=== PATIENT | female | born 1985 | race Caucasian/White ===

== ENCOUNTER 2017-05-03 14:14 | Emergency (ER) | payer OTHER ==
[2017-05-03] MEDS ORDERED: NS 1,000 ML IV ONE (15:04)
[2017-05-03] MEDS ORDERED: ONDANSETRON 4 MG/2 ML VIAL IVP ONE (15:04)
[2017-05-03] MEDS ORDERED: FAMOTIDINE 20 MG/NACL 50 ML IV ONE (15:04)
--- NOTE | 2017-05-03 15:08 | EDPHY ---
H & P Time Seen by Provider: 05/03/17 14:56 HPI/ROS: HPI Vomiting, diarrhea. 31-year-old female by private vehicle. This patient reports that she woke this morning with crampy lower abdominal discomfort followed by nausea, 1 episode of nonbilious, nonbloody vomiting and watery diarrhea initially. She reports that she has had several episodes of diarrhea most recent episodes have been streaked with blood. She denies any foreign travel. She ate chicken at a restaurant last night. Denies any ill contacts. She feels better now. Last episode of diarrhea was about 2 hours ago. Last menstrual period 1 week ago. No other complaints. ROS: Constitutional: No fever, no chills. No weakness. Eyes: No discharge. No changes in vision. ENT: No sore throat. No nasal congestion or rhinorrhea. Respiratory: No cough. No shortness of breath. Cardiac: No chest pain, no palpitations. Gastrointestinal: As above. Genitourinary: No hematuria. No dysuria or increased frequency with urination. Musculoskeletal: No back pain. No neck pain. No myalgias or arthralgias. Skin: No rashes. Neurological: No headache. No focal weakness or altered sensation. Past medical history: She denies any significant past medical history. Social history: Nonsmoker. No alcohol. Here by herself. Physical Exam: General Appearance: Alert, no distress. She appears comfortable. This patient is responding to questions appropriately and in full sentences. This patient appears well-hydrated and well-nourished. Eyes: Pupils equal and round no pallor or injection. No lid edema, erythema or injection. Respiratory: There are no retractions, lungs are clear to auscultation with good air movement bilaterally. Cardiovascular: Regular rate and rhythm. No murmur. Gastrointestinal: Abdomen is soft and nontender, no masses, bowel sounds normal. No focal tenderness at McBurney's point. No Caceres sign. Neurological: Motor sensory function is grossly intact. Cranial nerves are normal. Gait is normal. Skin: Warm and dry, no rashes. Musculoskeletal: Neck is supple and nontender. Extremities are symmetrical. All joints range without pain or impingement. Psychiatric: No agitation. No depression. Database: EKG: Imaging: Procedures: Emergency department course: IV placed. She was placed on a monitor. Her vital signs were reviewed. She was started on IV normal saline with 1 L to be given over the next hour. She was initially given 20 mg of IV Pepcid and 4 mg of IV Zofran. 4:30 p.m., patient re-evaluated. Resting comfortably at this time. States that she feels better. She is able to take oral fluids at this time. Results of her lab work discussed with her. Repeat abdominal exam she is soft, nontender nondistended. She feels comfortable going home at this time. I discussed the differential diagnosis with her. Management of food-borne illness discussed with her. I will prescribe her Zofran on discharge. Follow- up and return to emergency department precautions reviewed. All of her questions were answered. She was discharged in good condition. Differential Diagnosis: The differential diagnosis on this patient includes but is not limited to food borne illness, entero hemorrhagic E coli, E coli [id number]. Bowel obstruction, appendicitis, pancreatitis, cholecystitis, other surgical etiology unlikely.. This represents a partial list of diagnoses considered. These considerations are based on history, physical exam, past history, reassessment and diagnostic testing. Smoking Status: Never smoked Constitutional: Initial Vital Signs Temperature (C) 36.9 C 05/03/17 14:17 Heart Rate 88 05/03/17 14:17 Respiratory Rate 16 05/03/17 14:17 Blood Pressure 110/65 05/03/17 14:17 O2 Sat (%) 98 05/03/17 14:17 O2 Delivery Mode Room Air Allergies/Adverse Reactions: No Known Allergies Allergy (Unverified 05/03/17 14:23) Home Medications: Medication Instructions Recorded Ondansetron Odt [Zofran Odt 4 mg 4 mg PO Q4PRN PRN #10 tab 05/03/17 (*)] Medical Decision Making - Data Points Laboratory Results: 05/03/17 14:55 POC Hgb 16.7 gm/dL H gm/dL (12.6-16.3) POC Hct 49 % H % (38-47) POC Sodium 142 mEq/L mEq/L (134-144) POC Potassium 3.9 mEq/L mEq/L (3.3-5.0) POC Chloride 104 mEq/L mEq/L (97-110) POC BUN 13 mg/dL mg/dL (7-23) POC Creatinine 0.9 mg/dL mg/dL (0.6-1.0) POC Glucose 99 mg/dL mg/dL (70-100) Medications Given: Discontinued Medications Sodium Chloride (Ns) 1,000 mls @ 0 mls/hr IV EDNOW ONE; Wide Open PRN Reason: Protocol Stop: 05/03/17 15:05 Last Admin: 05/03/17 15:31 Dose: 1,000 mls Famotidine/Sodium Chloride (Pepcid 20 Mg (Premix)) 50 mls @ 200 mls/hr IV EDNOW ONE Stop: 05/03/17 15:18 Last Admin: 05/03/17 15:30 Dose: 50 mls Ondansetron HCl (Zofran) 4 mg IVP EDNOW ONE Stop: 05/03/17 15:05 Last Admin: 05/03/17 15:30 Dose: 4 mg Point of Care Test Results: 05/03/17 14:55 POC Sodium 142 POC Potassium 3.9 POC Chloride 104 POC BUN 13 POC Creatinine 0.9 POC Glucose 99 Departure - Departure Disposition: Home, Routine, Self-Care Clinical Impression: Vomiting and diarrhea, Bloody stool Condition: Good Instructions: Gastroenteritis (ED), Food Poisoning (ED) Additional Instructions: Read and follow provided instructions. Follow-up with your primary care physician in 1-2 days for re-evaluation as needed. Take medication as prescribed for nausea and vomiting. Keep well hydrated. Drink lots of fluids. A good fluid to drink is Gatorade mixed with water in a 1-1 dilution with ice. Return to the emergency department for worsening abdominal pain, vomiting and inability to keep fluids down despite medications, fever or other serious concerns. Referrals: Joyce Camargo MD [Primary Care Provider] - As per Instructions Prescriptions: Ondansetron Odt [Zofran Odt 4 mg (*)] 4 mg PO Q4PRN PRN #10 tab PRN Reason: For Nausea & Vomiting
[2017-05-03 16:32] VITALS: BP 112/75; PULSE 78; RESP 18; TEMP 98.6; O2SAT 96
== END 2017-05-03 16:28 | disposition home or self-care (01) ==
DX: K92.1 Melena (principal); E86.9 Volume depletion, unspecified
CPT/HCPCS: 82947-QW; 96374; J2405

== ENCOUNTER → 2017-07-14 | Outpatient (CLI) | payer OTHER | LOC: FIMAGING 14:21 | PROVIDERS: ATTEND Obstetrics & Gynecology | DX: O30.091 Twin pregnancy, unable to determine number of placenta and number of amniotic sacs, first trimester (principal); Z3A.08 8 weeks gestation of pregnancy ==

== ENCOUNTER → 2017-10-08 | Outpatient (CLI) | payer OTHER | LOC: FIMAGING 07:29 | PROVIDERS: ATTEND Obstetrics & Gynecology | DX: O99.342 Other mental disorders complicating pregnancy, second trimester (principal); Z3A.19 19 weeks gestation of pregnancy; F41.8 Other specified anxiety disorders ==